=== PATIENT | female | born 1995 | race African-American/Black ===

== ENCOUNTER 2018-04-01 22:19 | Observation (INO) | payer MEDICAID ==
[~2018-04-01] VITALS: Ht 154.9 cm; Wt 81.6 kg
== END 2018-04-02 03:17 | disposition home or self-care (01) ==
LOC: 8 EST LDRP 22:19
PROVIDERS: ADMIT Obstetrics & Gynecology; ATTEND Obstetrics & Gynecology
DX: O26.893 Other specified pregnancy related conditions, third trimester (principal); R10.30 Lower abdominal pain, unspecified; M54.5 Low back pain; Z3A.37 37 weeks gestation of pregnancy
CPT/HCPCS: 99281; G0378

== ENCOUNTER 2018-05-01 01:49 | Inpatient (IN) | payer MEDICAID ==
[~2018-05-01] VITALS: Ht 154.9 cm; Wt 81.6 kg
[2018-05-01] MEDS ORDERED: DEXT 5%/LR + PITOCIN 20UNITS/L 1,000 ML IV SCH ×2 (02:24→04:46)
[2018-05-01] MEDS ORDERED: LACTATED RINGERS 1,000 ML IV SCH (02:24)
[2018-05-01] MEDS ORDERED: LIDOCAINE HCL 1% 20ML VIAL (Pyxis) INJ INFIL SCH (02:30)
[2018-05-01] MEDS ORDERED: BUTORPHANOL TARTRATE 2 MG/ML VIAL IV PRN (02:30)
[2018-05-01] MEDS ORDERED: NALOXONE HCL 0.4 MG/ML 1ML VIAL IM PRN (02:30)
[2018-05-01] MEDS ORDERED: METHYLERGONOVINE MALEATE 0.2 MG/ML IM PRN ×2 (02:30→05:00)
[2018-05-01] MEDS ORDERED: PENICILLIN G POTASSIUM 5 MMU in DEXT 5% WATER 100 ML IV SCH ×2 (03:00→06:00)
[2018-05-01 03:48] LABS: BASOPHILS % 0.4 % (0.0-2.0); EOSINOPHILS % 0.9 % (0.0-5.0); HEMATOCRIT. 29.6 % (36.0-48.0); HEMOGLOBIN. 9.6 g/dL (12.0-16.0); MEAN CORPUSCULAR HEMOGLOBIN 26.3 pg (28.0-32.0); MEAN CORPUSCULAR VOLUME 80.9 fL (81.0-99.0); MEAN PLATELET VOLUME 9.1 fl (7.4-10.4); MONOCYTES % 8.6 % (2.0-8.0); NEUTROPHILS % 61.1 % (40.0-76.0); PLATELET 267 x1000/uL (130-400); RED BLOOD CELL COUNT 3.66 mill/uL (4.2-5.4); RED CELL DISTRIBUTION WIDTH 14.3 % (11.6-14.6)
[2018-05-01 03:50] LABS: CLARITY URINE CLEAR (CLEAR); COLOR URINE YELLOW (YELLOW); KETONES URINE NEGATIVE (NEGATIVE); LEUKOCYTE ESTERASE URINE NEGATIVE (NEGATIVE); NITRITE URINE NEGATIVE (NEGATIVE); OCCULT BLOOD URINE NEGATIVE (NEGATIVE); PH URINE 8.5 (4.5-8.0); PROTEIN URINE NEGATIVE (NEGATIVE)
[2018-05-01 03:57] LABS: PARTIAL THROMBOPLASTIN TIME 26.5 sec (23.4-31.0); PROTHROMBIN TIME 9.8 sec (9.1-11.1)
[2018-05-01 04:12] LABS: *AMPHETAMINES SCREEN URINE NEGATIVE (NEGATIVE); *BARBITURATES SCREEN URINE NEGATIVE (NEGATIVE); *BENZODIAZEPINES SCREEN URINE NEGATIVE (NEGATIVE); *COCAINE SCREEN URINE NEGATIVE (NEGATIVE); METHADONE URINE SCREEN NEGATIVE (NEGATIVE); OPIATES URINE SCREEN NEGATIVE (NEGATIVE)
[2018-05-01 04:13] LABS: CANNABINOID URINE SCREEN NEGATIVE (NEGATIVE); PHENCYCLIDINE URINE SCREEN NEGATIVE (NEGATIVE)
[2018-05-01 04:31] LABS: HEPATITIS B SURFACE ANTIGEN NEGATIVE
[2018-05-01] MEDS ORDERED: LANOLIN OINT 0.25 GM TUBE TOP PRN (05:00)
[2018-05-01] MEDS ORDERED: IBUPROFEN 400MG TABLET PO PRN (05:00)
[2018-05-01] MEDS ORDERED: RHO(D) IMMUNE GLOBULIN 300 MCG/SYR IM PRN (05:00)
[2018-05-01 06:53] VITALS: BP 122/68
[2018-05-01] MEDS: IBUPROFEN 800MG TABLET PO PRN ×2 (08:43→22:21)
[2018-05-01 08:50] VITALS: BP 112/57
[2018-05-01 09:09] LABS: HEMOGLOBIN. 9.5 g/dL (12.0-16.0); MEAN CORPUSCULAR HEMOGLOBIN 26.5 pg (28.0-32.0); MEAN CORPUSCULAR VOLUME 80.6 fL (81.0-99.0); PLATELET 251 x1000/uL (130-400); RED CELL DISTRIBUTION WIDTH 14.5 % (11.6-14.6)
[2018-05-01] MEDS ORDERED: PENICILLIN G POTASSIUM 2.5 MMU in DEXTROSE 5% WATER 50 ML IV SCH (10:00)
[2018-05-01 13:58] LABS: PLATELET ESTIMATE NORMAL
[2018-05-01 16:28] VITALS: BP 90/48
[2018-05-01 20:00] VITALS: BP 102/57
[2018-05-02 04:00] VITALS: BP 107/48
[2018-05-02] MEDS: IBUPROFEN 800MG TABLET PO PRN ×2 (04:33→15:36)
[2018-05-02 06:52] LABS: BASOPHILS % 0.6 % (0.0-2.0); EOSINOPHILS % 1.2 % (0.0-5.0); HEMATOCRIT. 26.9 % (36.0-48.0); HEMOGLOBIN. 8.7 g/dL (12.0-16.0); LYMPHOCYTES % 27.8 % (20.0-50.0); MEAN CORPUSCULAR HEMOGLOBIN 26.4 pg (28.0-32.0); MEAN CORPUSCULAR VOLUME 81.5 fL (81.0-99.0); MEAN PLATELET VOLUME 9.2 fl (7.4-10.4); NEUTROPHILS % 64.4 % (40.0-76.0); PLATELET 246 x1000/uL (130-400); RED BLOOD CELL COUNT 3.29 mill/uL (4.2-5.4); RED CELL DISTRIBUTION WIDTH 14.3 % (11.6-14.6)
[2018-05-02 07:58] VITALS: BP 91/50
[2018-05-02] MEDS: PRENATAL VIT/FE FUMARATE/FA TABLET PO SCH (08:51)
[2018-05-02 15:59] VITALS: BP 94/50
[2018-05-02 22:00] VITALS: BP 90/49
[2018-05-03 05:30] VITALS: BP 92/51
[2018-05-03 07:28] VITALS: BP 105/60
[2018-05-03] MEDS: PRENATAL VIT/FE FUMARATE/FA TABLET PO SCH (08:15)
== END 2018-05-03 10:40 | disposition home or self-care (01) | DRG 560 ==
LOC: 8 EST LDRP 01:49 → OBSVTOIN 01:49 → 8EST 06:15
PROVIDERS: ADMIT Obstetrics & Gynecology; ATTEND Obstetrics & Gynecology
PROC: 10E0XZZ Delivery of Products of Conception, External Approach (ICD-10-PCS; principal; 2018-05-01)
DX: O48.0 Post-term pregnancy (principal); D64.9 Anemia, unspecified; O90.81 Anemia of the puerperium; Z37.0 Single live birth; Z3A.42 42 weeks gestation of pregnancy
CPT/HCPCS: 36415; 80305; 85007; 85027; 86592; 86703; 86762; 86850; 86900; 87340; 99281; J0595; J2540; J2590; J7060; J7120

== ENCOUNTER 2019-02-08 22:49 | Emergency (ER) | payer MEDICAID ==
[~2019-02-08] VITALS: Ht 157.5 cm; Wt 82.0 kg
[2019-02-09 00:39] LABS: CLARITY URINE CLOUDY (CLEAR); COLOR URINE YELLOW (YELLOW); KETONES URINE NEGATIVE (NEGATIVE); LEUKOCYTE ESTERASE URINE 2+ (NEGATIVE); NITRITE URINE NEGATIVE (NEGATIVE); OCCULT BLOOD URINE NEGATIVE (NEGATIVE); PROTEIN URINE NEGATIVE (NEGATIVE); SPECIFIC GRAVITY URINE 1.022 (1.005-1.030)
[2019-02-09] MEDS ORDERED: ACETAMINOPHEN WITH CODEINE 300/30MG TABLET PO ONE (00:45)
[2019-02-09 00:48] VITALS: BP 122/77
== END 2019-02-09 00:49 | disposition home or self-care (01) ==
LOC: ER 22:49
DX: S39.012A Strain of muscle, fascia and tendon of lower back, initial encounter (principal); V49.40XA Driver injured in collision with unspecified motor vehicles in traffic accident, initial encounter; Y93.89 Activity, other specified; Y92.410 Unspecified street and highway as the place of occurrence of the external cause
CPT/HCPCS: 81003; 81025; 99283

== ENCOUNTER 2019-12-25 18:57 | Observation (INO) | payer MEDICAID ==
[~2019-12-25] VITALS: Ht 154.9 cm; Wt 94.8 kg
== END 2019-12-25 20:50 | disposition home or self-care (01) ==
LOC: 8 EST LDRP 18:57
PROVIDERS: ADMIT Specialist; ATTEND Specialist
DX: O62.9 Abnormality of forces of labor, unspecified (principal); Z3A.39 39 weeks gestation of pregnancy
CPT/HCPCS: 59025; G0378; 99281

== ENCOUNTER 2019-12-30 10:51 | Observation (INO) | payer MEDICAID ==
[~2019-12-30] VITALS: Ht 154.9 cm; Wt 93.4 kg
[2019-12-30] MEDS ORDERED: PNV1TABL76 MT (13:49)
== END 2019-12-30 13:55 | disposition home or self-care (01) ==
LOC: 8 EST LDRP 10:51
PROVIDERS: ADMIT Obstetrics & Gynecology; ATTEND Obstetrics & Gynecology
DX: Z34.93 Encounter for supervision of normal pregnancy, unspecified, third trimester (principal); Z3A.40 40 weeks gestation of pregnancy
CPT/HCPCS: 59025; 76815; 76818; G0378; 99281